=== PATIENT | male | born 1990 ===

== ENCOUNTER 2020-05-01 20:54 | Emergency (ER) | payer SELFPAY ==
[~2020-05-01] VITALS: Ht 182.9 cm; Wt 79.5 kg
[2020-05-01 20:57] VITALS: BP 14/70
[2020-05-01] MEDS ORDERED: NEOSPORIN OINT. PKT 1 PACKET ONE ×2 (21:19→22:05)
[2020-05-01] MEDS ORDERED: LIDOCAINE-MPF 2% ,5ML ONE (21:19)
[2020-05-01] MEDS ORDERED: IBUPROFEN 600 MG TABLET PO ONE (21:30)
[2020-05-01] MEDS ORDERED: DIPH,PERTUSS(ACELL),TET VAC/PF 0.5 ML IM-VACC ONE ×2 (21:30→22:03)
[2020-05-01] MEDS ORDERED: LIDOCAINE 2%, 20ML SQ ONE (21:30)
[2020-05-01] MEDS ORDERED: IBUPROFEN 600 MG TABLET ONE (22:03)
== END 2020-05-01 22:19 | disposition left against medical advice (07) ==
LOC: ED 21:40
DX: S61.211A Laceration without foreign body of left index finger without damage to nail, initial encounter (principal); S61.012A Laceration without foreign body of left thumb without damage to nail, initial encounter; F17.210 Nicotine dependence, cigarettes, uncomplicated; X58.XXXA Exposure to other specified factors, initial encounter; Y93.89 Activity, other specified; Y92.009 Unspecified place in unspecified non-institutional (private) residence as the place of occurrence of the external cause
CPT/HCPCS: 12041; 90471; 90715; 99285; 99406